=== PATIENT | male | born 1980 ===

== ENCOUNTER 2018-06-08 23:39 | Emergency (ER) | payer SELFPAY ==
[2018-06-08 23:56] VITALS: BP 116/74; PULSE 68; TEMP 97.8; O2SAT 97
--- NOTE | 2018-06-09 00:18 | C.PDOC ---
History Of Present Illness 38 year old male is sent to the ED from Urgent Care to have a CT done. Patient sustained a laceration while at work today at 20:30. Patient was sent to an Urgent Care where he had a laceration done. Patient was given a prescription at the Urgent Care to have a Ct head done. Upon arrival to the ED patient was asymptomatic. Patient denies LOC, headache, visual changes, neck pain, weakness, numbness. Time Seen by Provider: 06/09/18 00:03 Chief Complaint (Nursing): Medical Clearance History Per: Patient History/Exam Limitations: no limitations Onset/Duration Of Symptoms: Hrs (20:30) Current Symptoms Are (Timing): Still Present Recent travel outside of the [place]: No Additional History Per: Patient Past Medical History Reviewed: Historical Data, Nursing Documentation, Vital Signs Vital Signs: Last Vital Signs Temp 97.8 F 06/08/18 23:46 Pulse 68 06/08/18 23:46 Resp 18 06/08/18 23:46 BP 116/74 06/08/18 23:46 Pulse Ox 97 06/08/18 23:46 - Medical History PMH: No Chronic Diseases Surgical History: No Surg Hx Family History: States: Unknown Family Hx - Social History Hx Alcohol Use: No Hx Substance Use: No - Immunization History Hx Tetanus Toxoid Vaccination: Yes (06/08/18) Hx Influenza Vaccination: No Hx Pneumococcal Vaccination: No Review Of Systems Constitutional: Negative for: Fever, Chills Eyes: Negative for: Vision Change Respiratory: Negative for: Cough, Shortness of Breath Gastrointestinal: Negative for: Nausea, Vomiting, Abdominal Pain Musculoskeletal: Negative for: Neck Pain Skin: Positive for: Other (laceration) Neurological: Negative for: Weakness, Numbness, Headache, Dizziness Physical Exam - Physical Exam Appears: Non-toxic, No Acute Distress Skin: Normal Color, Warm, Dry Head: Atraumatic, Normacephalic, Laceration (right eyebrow sutures, cleaned, no active bleeding) Eye(s): bilateral: Normal Inspection, PERRL, EOMI Oral Mucosa: Moist Neck: Normal ROM, No Midline Cervical Tenderness, Supple Chest: Symmetrical Cardiovascular: Rhythm Regular Respiratory: Normal Breath Sounds, No Rales, No Rhonchi, No Wheezing Gastrointestinal/Abdominal: Soft, No Tenderness, No Guarding, No Rebound Back: No CVA Tenderness Extremity: Normal ROM, No Tenderness, No Swelling Neurological/Psych: Oriented x3, Normal Speech, Normal Cognition, Normal Motor, Normal Sensation Gait: Steady ED Course And Treatment O2 Sat by Pulse Oximetry: 97 (ON RA) Pulse Ox Interpretation: Normal Progress Note: Patient was educated on risks/benefits of having a CT scan done. Patient was asymptomatic upon arriving to the ED with normal neuro exam. Pt questioned whether or not necessary to have CT. I explained to pt again the risks and benefits and since neuro stable patient chose not to have the CT scan at this. Patient was advised to follow up with PMD and observe for concussion symptoms. Return precautions were discussed with the patient. Disposition Counseled Patient/Family Regarding: Diagnosis, Need For Followup, Rx Given - Disposition Referrals: [facility] [Outside] Disposition: HOME/ ROUTINE Disposition Time: 00:15 Condition: STABLE Additional Instructions: Follow head injury precautions as explained Tylenol or advil if pain Return to ER if worse Instructions: Head Injury Observation (DC) Forms: [employer] (Nepali) - Clinical Impression Clinical Impression: Head injury - PA / DUTY OFFICER / Resident Statement MD/DO has reviewed & agrees with the documentation as recorded. - Scribe Statement The provider has reviewed the documentation as recorded by the Scribe Dylon Gibbs All medical record entries made by the Scribe were at my direction and personally dictated by me. I have reviewed the chart and agree that the record accurately reflects my personal performance of the history, physical exam, medical decision making, and the department course for this patient. I have also personally directed, reviewed, and agree with the discharge instructions and disposition.
[2018-06-09 00:38] VITALS: RESP 20
== END 2018-06-09 00:37 | disposition home or self-care (01) ==
LOC: C.ER 23:39
DX: S09.90XA Unspecified injury of head, initial encounter (principal); X58.XXXA Exposure to other specified factors, initial encounter; Y99.0 Civilian activity done for income or pay